=== PATIENT | female | born 1950 | race Two or more races ===

== ENCOUNTER 2021-12-24 13:19 | Inpatient (IN) | payer MEDICARE, OTHER ==
[~2021-12-24] VITALS: Ht 157.5 cm; Wt 45.8 kg
--- NOTE | 2021-12-24 13:37 | NUR ---
[facility] [place] "Failure to thrive,weight loss x2wks". On room air, breathing evenly and unlabored. Kept comfortable, will continue to monitor accordingly.
--- NOTE | 2021-12-24 13:47 | NUR ---
DISTRIBUTOR OF DIRECTORIES AT BEDSIDE FOR XRAY
[2021-12-24] MEDS ORDERED: INSU100V3 IJ (13:48)
[2021-12-24] MEDS ORDERED: METF-442 PO (13:48)
[2021-12-24] MEDS ORDERED: MAGN400O6 PO (13:48)
[2021-12-24] MEDS ORDERED: MAG30ORA PO (13:48)
[2021-12-24] MEDS ORDERED: INSU100I26 SQ (13:48)
[2021-12-24] MEDS ORDERED: RIVA1.5C13 PO (13:48)
[2021-12-24] MEDS ORDERED: GLIP5TAB13 PO (13:48)
[2021-12-24] MEDS ORDERED: MIRT-121 PO (13:48)
[2021-12-24] MEDS ORDERED: DIVA-78 PO (13:48)
--- NOTE | 2021-12-24 13:49 | NUR ---
LEFT FOREARM # 18 G SL ESTABLISHED, BLOOD SAMPLES OBTAINED AND SENT TO LAB. COVID SWAB OBTAINED AND SENT TO LAB.
[2021-12-24 13:51] LABS: BASOPHILS % (AUTO) 0.3 % (0.0-2.0); EOSINOPHILS % (AUTO) 1.4 % (0.0-6.0); HEMATOCRIT 43 % (33-45); HEMOGLOBIN 14.2 g/dL (11.5-14.8); LYMPHOCYTES % (AUTO) 25.1 % (20.0-44.0); MEAN CORPUSCULAR HGB CONC 33 g/dl (31.0-36.0); MEAN CORPUSCULAR VOLUME 93 fL (82-100); MONOCYTES # (AUTO) 0.6 K/uL (0.1-1.30); NEUTROPHILS # (AUTO) 5.2 K/uL (1.8-8.9); NEUTROPHILS % (AUTO) 65.2 % (43.0-81.0); PLATELET COUNT (AUTO) 212 K/uL (150-450); RED BLOOD CELL COUNT(AUTO) 4.58 MIL/uL (4.0-5.2)
--- NOTE | 2021-12-24 13:57 | NUR ---
MOVE SHEET SUBMITTED.
[2021-12-24 14:06] LABS: CALCIUM, SERUM 9.3 mg/dL (8.5-10.1); CREATININE 0.8 mg/dL (0.6-1.3); POTASSIUM 4.2 mmol/L (3.5-5.1)
--- NOTE | 2021-12-24 14:20 | NUR ---
URINE SAMPLE OBTAINED AND SENT TO LAB
[2021-12-24] MEDS ORDERED: MAG HYDROX/AL HYDROX/SIMETH 30 ML UDC PO PRN (14:30)
[2021-12-24] MEDS ORDERED: Z GUARD REMEDY 4 OZ OINT TP PRN (14:30)
[2021-12-24] MEDS ORDERED: ACETAMINOPHEN 325 MG TABLET PO PRN (14:30)
[2021-12-24] MEDS ORDERED: ONDANSETRON HCL/PF 4 MG/2 ML VIAL IVP PRN (14:30)
[2021-12-24] MEDS ORDERED: MAGNESIUM HYDROXIDE 30 ML UDC PO PRN ×2 (14:30)
[2021-12-24] MEDS ORDERED: DEXTROSE 50%-WATER 50 ML DISP.SYRIN IV PRN (14:30)
--- NOTE | 2021-12-24 15:00 | NUR ---
ADMISSION NOTE Received patient via gurney from ER. Report given by Remberto at 1445. Patient is A/O x 1-2, verbally responsive and confused at times. On room air, breathing evenly and unlabored. No SOB or s/s of distress noted. Patient oriented to room and how to use the call light. IV access on RAC #18, not flushing well. IV access long-term dislodged; removed and will re-insert. Skin assessment done. Tiny scab noted on sacral area. Photo taken and placed in chart. Wound care consult requested. VS as follows: BP 104/70; HR 68; RR 20; Temp 98.6; SPO2 100%. All belongings accounted for. Belonging sheet placed in chart. Safety precautions in place: bed in low, locked position; siderails up x 2; call light within reach. Will continue to monitor.
[2021-12-24 15:56] LABS: BILIRUBIN,URINE NEGATIVE (NEGATIVE); COLOR,URINE YELLOW (YELLOW); LEUKOCYTE ESTERASE ,URINE TRACE (NEGATIVE); NITRITE, URINE NEGATIVE (NEGATIVE); PROTEIN,URINE NEGATIVE (NEGATIVE); UGLUCOSE NEGATIVE (NEGATIVE); UROBILINOGEN,URINE 0.2 EU/dL (0.2)
[2021-12-24 16:00] VITALS: BP 104/70
[2021-12-24] MEDS: IV NS 0.9% 1,000 ML IV PRN (16:01)
[2021-12-24 16:05] LABS: BACTERIA,URINE None seen /HPF (None Seen); RBC,URINE 0-2 /HPF (0-2); SQUAMOUS EPITHELIAL CELL,UR Few /HPF (None Seen); WBC,URINE 0-2 /HPF (0-3)
[2021-12-24] MEDS: METFORMIN 500 MG TABLET PO SCH (16:56)
[2021-12-24] MEDS: DIVALPROEX SODIUM 250 MG TABLET.DR PO SCH (16:56)
[2021-12-24] MEDS: BLOOD SUGAR DIAGNOSTIC 1 EACH STRIP VI SCH ×2 (17:24→22:33)
[2021-12-24] MEDS: INSULIN REGULAR, HUMAN 100 UNIT/ML 3 ML VIAL SQ PRN ×2 (17:24→22:29)
--- NOTE | 2021-12-24 19:31 | NUR ---
MS RN CLOSING NOTE Patient in bed, resting. A/O x 1-2, confused and forgetful at times. Stable on room air, breathing evenly and unlabored. No SOB or s/s of distress noted. IV access re-inserted on RFA #22 now infusing NS at 75 ml/hr. Denies any pain or discomfort at this time. All needs attended to. Due meds given. Safety precautions maintained: bed in low, locked position; siderails up x 2; call light within reach. Will endorse to shift foreman nurse for ARIES. Addendum: 12/24/21 at 1936 by GALINA WING RN CORRECTION: IV access on RFA #24
--- NOTE | 2021-12-24 19:54 | NUR ---
RECEIVED PATIENT IN BED, ALERT/ORIENTED X2, WITH CONFUSION, FORGETFUL, QUIET, CALM, FALL RISK, GETTING OUT OF BED UNASSISTED, FALL PRECAUTION, BED ALARM ON, KEPT SAFE, WILL CONTINUE TO MONITOR.
[2021-12-24 20:00] VITALS: BP 136/65
[2021-12-24] MEDS: RIVASTIGMINE TARTRATE 1.5 MG CAPSULE PO SCH (20:34)
[2021-12-24] MEDS: MIRTAZAPINE 15 MG TABLET PO SCH (21:32)
--- NOTE | 2021-12-24 21:33 | NUR ---
BG 77 MG/DL, GIVEN 8 OZ ORANGE JUICE, WILL PROVIDE SANDWICH, AND RE-CHECK BLOOD SUGAR
[2021-12-24 21:51] VITALS: BP 136/65
[2021-12-24] MEDS: INSULIN GLARGINE, 100 UNIT/ML CARTRIDGE SQ SCH (22:00)
--- NOTE | 2021-12-24 22:30 | NUR ---
NO APPETITE, GIVEN SANDWICH, ONLY 1/4 EATEN, DRANK 8OZ ORANGE JUICE, OFFERED MORE SNACKS, REFUSED, RECHECKED BLOOD SUGAR, BG 80 MG/DL. EDUCATED PATIENT TO EAT MORE TO INCREASE BLOOD SUGAR. LANTUS 10 UNITS NOT GIVEN, INSULIN ALSO HELD.
--- NOTE | 2021-12-25 06:09 | NUR ---
ALERT/ORIENTED X2-3, ROOM AIR, NO COMPLAIN OF PAIN, LETHARGIC, ANSWERS SIMPLE QUESTIONS, ABLE TO SWALLOW MEDICATION, REGULAR DIET, NO APPETITE, INCONTINENT, ACCUCHECK WITH SLIDING SCALE, CONTINUE IVF, ENCOURAGE EATING MORE, SUPPORTIVE CARE, FALL PRECAUTION.
[2021-12-25] MEDS: IV NS 0.9% 1,000 ML IV PRN (06:25)
[2021-12-25] MEDS: BLOOD SUGAR DIAGNOSTIC 1 EACH STRIP VI SCH ×4 (06:54→22:22)
[2021-12-25] MEDS: *INSULIN REGULAR(HUMULIN R)HUM 100 UNIT/ML VIAL SQ PRN (06:54)
--- NOTE | 2021-12-25 07:00 | NUR ---
MS PHAM OPENING NOTE PATIENT LAYING IN BED, A/O X 1, TOLERATING WELL ON ROOM AIR WITH NO S/S RESPIRATORY DISTRESS. NO COMPLAINTS OF PAIN OR DISCOMFORT AT THIS TIME. RFA # 24 SL CLEAN, INTACT, AND INFUSING NS @ 75 ML/HR. SAFETY MEASURES IN PLACE: BED IN LOWEST LOCKED POSITION, SIDE RAILS UP X 2, CALL LIGHT WITHIN REACH WILL CONTINUE TO MONITOR. Addendum: 12/25/21 at 1034 by CHING MORGAN RN CORRECTION: PATIENT A/O X 2 (TO NAME AND LOCATION)
[2021-12-25 08:00] VITALS: BP 165/75
[2021-12-25] MEDS: METFORMIN 500 MG TABLET PO SCH ×2 (08:15→17:07)
[2021-12-25] MEDS: RIVASTIGMINE TARTRATE 1.5 MG CAPSULE PO SCH ×2 (08:16→22:04)
[2021-12-25] MEDS: DIVALPROEX SODIUM 250 MG TABLET.DR PO SCH ×3 (08:16→17:07)
[2021-12-25 11:45] LABS: CALCIUM, SERUM 8.2 mg/dL (8.5-10.1); CREATININE 0.7 mg/dL (0.6-1.3); MAGNESIUM 2.1 mg/dL (1.8-2.4); PHOSPHORUS 3.8 mg/dL (2.5-4.9); POTASSIUM 4.4 mmol/L (3.5-5.1)
[2021-12-25] MEDS: CEFTRIAXONE 1 G in IV D5W 50 ML IV SCH (12:40)
[2021-12-25] MEDS: INSULIN REGULAR, HUMAN 100 UNIT/ML 3 ML VIAL SQ PRN (13:23)
[2021-12-25 15:24] LABS: BASOPHILS % (AUTO) 0.3 % (0.0-2.0); EOSINOPHILS % (AUTO) 1.4 % (0.0-6.0); HEMATOCRIT 42 % (33-45); HEMOGLOBIN 14.2 g/dL (11.5-14.8); LYMPHOCYTES # (AUTO) 2.5 K/uL (0.8-4.8); LYMPHOCYTES % (AUTO) 30.1 % (20.0-44.0); MEAN CORPUSCULAR HGB CONC 34 g/dl (31.0-36.0); MEAN CORPUSCULAR VOLUME 94 fL (82-100); MONOCYTES # (AUTO) 0.6 K/uL (0.1-1.30); MONOCYTES % (AUTO) 7.3 % (2.0-12.0); NEUTROPHILS # (AUTO) 5.1 K/uL (1.8-8.9); NEUTROPHILS % (AUTO) 60.9 % (43.0-81.0); PLATELET COUNT (AUTO) 204 K/uL (150-450); RED BLOOD CELL COUNT(AUTO) 4.49 MIL/uL (4.0-5.2); WHITE BLOOD COUNT (AUTO) 8.3 K/uL (4.3-11.0)
[2021-12-25 16:00] VITALS: BP 152/104
--- NOTE | 2021-12-25 19:00 | NUR ---
MS RN CLOSING NOTES PATIENT LAYING IN BED, A/O X 1, TOLERATING WELL ON ROOM AIR WITH NO S/S RESPIRATORY DISTRESS. NO COMPLAINTS OF PAIN OR DISCOMFORT AT THIS TIME. RFA # 24 SL CLEAN, INTACT, AND INFUSING NS @ 75 ML/HR. SAFETY MEASURES IN PLACE: BED IN LOWEST LOCKED POSITION, SIDE RAILS UP X 2, CALL LIGHT WITHIN REACH. ALL NEEDS MET. WILL ENDORSE TO LEARNING AND DEVELOPMENT ANALYST FOR ARIES.
--- NOTE | 2021-12-25 19:15 | NUR ---
MS RN OPENING NOTE RECEIVED PATIENT RESTING IN BED; AWAKE, ALERT AND ORIENTED X1. RESPIRATION EVEN AND NONLABORED. ON ROOM AIR; TOLERATING WELL. NO S/SX OF RESPIRATORY DISTRESS NOTED. DENIES ANY PAIN OR DISCOMFORT OF THIS TIME. WITH IV ACCESS ON RIGHT FOREARM 24G; PATENT AND INTACT INFUSING WITH NS 1L REGULATED @ 75 ML/HR; FLUSHES WELL. NEEDS ANTICIPATED AND ATTENDED. SAFETY MEASURES IMPLEMENTED: HEAD OF BED ELEVATED, CALL LIGHT AND TABLE WITHIN REACH, SIDE RAILS UP X2, BED IN LOWEST LOCKED POSITION. WILL CONTINUE TO MONITOR
[2021-12-25 20:00] VITALS: BP 123/64
[2021-12-25] MEDS: INSULIN GLARGINE, 100 UNIT/ML CARTRIDGE SQ SCH (22:00)
[2021-12-25] MEDS: MIRTAZAPINE 15 MG TABLET PO SCH (22:04)
--- NOTE | 2021-12-25 22:22 | NUR ---
RN NOTE BLOOD SUGAR CHECKED - 97 MG/DL; NO INSULIN COVERAGE GIVEN. OFFERED APPLE JUICE AND HONEY CRACKERS. LANTUS 10 UNITS HELD.
--- NOTE | 2021-12-26 06:06 | NUR ---
RN NOTE BLOOD SUGAR CHECKED - 125 MG/DL; NO INSULIN COVERAGE GIVEN.
[2021-12-26] MEDS: BLOOD SUGAR DIAGNOSTIC 1 EACH STRIP VI SCH ×4 (06:13→21:39)
--- NOTE | 2021-12-26 07:00 | NUR ---
MS RN OPENING NOTE PATIENT LAYING IN BED, A/O X 1, TOLERATING WELL ON ROOM AIR WITH NO S/S RESPIRATORY DISTRESS. NO COMPLAINTS OF PAIN OR DISCOMFORT AT THIS TIME. R FA # 24 G IV CLEAN, INTACT, AND INFUSING NS @ 75 ML/HR. SAFETY MEASURES IN PLACE: BED IN LOWEST LOCKED POSITION, SIDE RAILS UP X 2, CALL LIGHT WITHIN REACH. WILL CONTINUE TO MONITOR.
--- NOTE | 2021-12-26 07:05 | NUR ---
MS RN CLOSING NOTE PT REMAINS IN BED; AWAKE, A/OX1. ON ROOM AIR, WELL TOLERATED. NO S/SX OF RESPIRATORY DISTRESS. NO C/O DISCOMFORT OR PAIN AT THIS TIME. IV SITE RFA 24G; PATENT, INTACT INFUSING WITH NS REGULATED @ 75 ML/HR; FLUSHES WELL. SAFETY MEASURES MAINTAINED: BED IN LOWEST LOCKED POSITION, CALL LIGHT WITHIN REACH, SIDE RAILS UP X2. ENDORSED TO MORNING SHIFT FOR ARIES.
[2021-12-26 08:27] VITALS: BP 116/88
[2021-12-26] MEDS: RIVASTIGMINE TARTRATE 1.5 MG CAPSULE PO SCH ×2 (08:37→21:42)
[2021-12-26] MEDS: METFORMIN 500 MG TABLET PO SCH ×2 (08:37→16:30)
[2021-12-26] MEDS: DIVALPROEX SODIUM 250 MG TABLET.DR PO SCH ×3 (08:37→16:30)
[2021-12-26] MEDS: IV NS 0.9% 1,000 ML IV PRN (08:38)
[2021-12-26] MEDS: CEFTRIAXONE 1 G in IV D5W 50 ML IV SCH (10:29)
[2021-12-26 16:28] VITALS: BP 142/71
--- NOTE | 2021-12-26 19:00 | NUR ---
MS RN CLOSING NOTE PATIENT LAYING IN BED, A/O X 1, TOLERATING WELL ON ROOM AIR WITH NO S/S RESPIRATORY DISTRESS. NO COMPLAINTS OF PAIN OR DISCOMFORT. R FA # 24 G SL CLEAN, INTACT, AND FLUSHING WELL. SAFETY MEASURES IN PLACE: BED IN LOWEST LOCKED POSITION, SIDE RAILS UP X 2, CALL LIGHT WITHIN REACH. ALL NEEDS MET. WILL ENDORSE TO PACKING AND STAMPING MACHINE OPERATOR FOR ARIES.
--- NOTE | 2021-12-26 19:30 | NUR ---
RN OPENING NOTES RECEIVED PT IN BED, ASLEEP, AWAKENS TO VERBAL STIMULI. AOx2. ON RA AND TOLERATING WELL. NO SOB NOTED. NO S/SX OF RESPIRATORY DISTRESS NOTED. IV ACCESS IN RFA #24G. IV IS INTACT, PATENT, AND FLUSHING WELL. SAFETY PRECAUTIONS IN PLACE: BED IN LOWEST, LOCKED POSITION, SIDERAILS UPx2, AND BRAKES ON. TABLE AND CALL LIGHT WITHIN REACH. WILL CONTINUE TO MONITOR.
[2021-12-26 20:00] VITALS: BP 128/74
[2021-12-26] MEDS: INSULIN GLARGINE, 100 UNIT/ML CARTRIDGE SQ SCH (21:39)
[2021-12-26] MEDS: *INSULIN REGULAR(HUMULIN R)HUM 100 UNIT/ML VIAL SQ PRN (21:40)
[2021-12-26] MEDS: MIRTAZAPINE 15 MG TABLET PO SCH (21:42)
--- NOTE | 2021-12-27 06:39 | NUR ---
RN CLOSING NOTES PT IN BED, ASLEEP, AWAKENS TO VERBAL STIMULI. AOx2. ON RA AND TOLERATING WELL. NO SOB NOTED. NO S/SX OF RESPIRATORY DISTRESS NOTED. IV ACCESS IN RFA #24G. IV IS INTACT, PATENT, AND FLUSHING WELL. ALL ORDERS CARRIED OUT. ALL NEEDS MET. PT KEPT CLEAN AND DRY. SAFETY PRECAUTIONS IN PLACE: BED IN LOWEST, LOCKED POSITION, SIDERAILS UPx2, AND BRAKES ON. TABLE AND CALL LIGHT WITHIN REACH. WILL ENDORSE TO ONCOMING SHIFT FOR ARIES.
--- NOTE | 2021-12-27 07:08 | NUR ---
RN OPEN NOTE RECEIVED PATIENT IN BED SLEEPING , AWAKENS TO VERBAL STIMULI. AOx2. OCCASIONALLY CONFUSED ON RA AND TOLERATING WELL. NO SOB NOTED. NO S/SX OF RESPIRATORY DISTRESS NOTED.PATIENT IS NPO PATIENT HAS IV ACCESS IN RFA #24G HAS D5 1/2 NS RUNNING AT 75ML/HR IV IS INTACT, AND FLUSHING WELL. SAFETY PRECAUTIONS IN PLACE: BED IN LOWEST, LOCKED POSITION, SIDE RAILS UPx2, AND BRAKES ON. TABLE AND CALL LIGHT WITHIN REACH. WILL CONTINUE WITH ARIES Addendum: 12/27/21 at 0717 by NANCIE FLORES RN NO FLUID RUNNING AT THIS TIME
[2021-12-27] MEDS: BLOOD SUGAR DIAGNOSTIC 1 EACH STRIP VI SCH ×2 (08:12→12:00)
[2021-12-27 08:37] VITALS: BP 118/65
--- NOTE | 2021-12-27 08:46 | NUR ---
WOUND CARE CONSULT: PT PRESENTS WITH HEALED AREA/SCAR TO SACRAL AREA. PT MOVES ABOUT IN BED. RECOMMENDATIONS MADE FOR SKIN PROTECTION. DISCUSSED WITH NURSING STAFF. PT IS ON PANDA ISOFLEX LOW AIRLOSS BED. M D IN AGREEMENT WITH PLAN OF CARE.
[2021-12-27] MEDS: RIVASTIGMINE TARTRATE 1.5 MG CAPSULE PO SCH (09:56)
[2021-12-27] MEDS: DIVALPROEX SODIUM 250 MG TABLET.DR PO SCH ×2 (09:56→13:31)
[2021-12-27] MEDS: METFORMIN 500 MG TABLET PO SCH (09:56)
[2021-12-27] MEDS: CEFTRIAXONE 1 G in IV D5W 50 ML IV SCH (11:48)
--- NOTE | 2021-12-27 14:45 | NUR ---
rn note patient is at stable condition , report was given to EMT , discharge instructions were provided to the patient and EMT . Patient is discharged from [facility]
== END 2021-12-27 14:40 | DRG 640 ==
LOC: ER 13:24 → MED 14:40
PROVIDERS: ADMIT Internal Medicine; ATTEND Internal Medicine
DX: E86.0 Dehydration (principal); G93.41 Metabolic encephalopathy; N39.0 Urinary tract infection, site not specified; D68.69 Other thrombophilia; E11.9 Type 2 diabetes mellitus without complications; I25.10 Atherosclerotic heart disease of native coronary artery without angina pectoris; R62.7 Adult failure to thrive; G30.9 Alzheimer's disease, unspecified; F02.80 Dementia in other diseases classified elsewhere, unspecified severity, without behavioral disturbance, psychotic disturbance, mood disturbance, and anxiety; J45.909 Unspecified asthma, uncomplicated; Z87.11 Personal history of peptic ulcer disease; R32 Unspecified urinary incontinence; R27.8 Other lack of coordination; F41.9 Anxiety disorder, unspecified; F39 Unspecified mood [affective] disorder; Z79.4 Long term (current) use of insulin; Z79.84 Long term (current) use of oral hypoglycemic drugs; Z79.899 Other long term (current) drug therapy; Z91.81 History of falling; I10 Essential (primary) hypertension; K21.9 Gastro-esophageal reflux disease without esophagitis; F29 Unspecified psychosis not due to a substance or known physiological condition
CPT/HCPCS: 36415; 71045-TC; 80048-TC; 80164-TC; 81001; 82962-TC; 83735-TC; 84100-TC; 85025-TC; 97112-TC; 97116-TC; 97530-TC; C9803; G0378; J0696; J1815; J7030; J7060

== ENCOUNTER 2022-04-14 22:28 | Inpatient (IN) | payer MEDICARE, OTHER ==
[~2022-04-14] VITALS: Ht 157.5 cm; Wt 44.0 kg
[~2022-04-14 22:28] MED LIST: DIVA-78 PO; GLIP5TAB13 PO; INSU100I26 SQ; INSU100V3 SQ; MAG30ORA PO; MAGN400O6 PO; METF-442 PO; MIRT-121 PO; RIVA1.5C13 PO
--- NOTE | 2022-04-14 22:45 | NUR ---
michael from [facility], sent by PMD for gen weakness, COVID+ today asymptomatic otherwise. PT A/OX1; CONFUSED. TOLERATING R/A WELL WITH NO RESP DISTRESS. CONNECTED PT TO POX AND MONITOR. SAFETY MEASURES IN PLACE.
--- NOTE | 2022-04-14 23:00 | NUR ---
PAYROLL BOOKKEEPER AT PT'S BEDSIDE
--- NOTE | 2022-04-14 23:05 | NUR ---
DATA PROCESSING OPERATOR AT PT'S BEDSIDE
--- NOTE | 2022-04-14 23:08 | NUR ---
COVID ANTIGEN SWAB COLLECTED AND SENT TO LAB
[2022-04-14 23:21] LABS: BASOPHILS % (AUTO) 0.2 % (0.0-2.0); EOSINOPHILS % (AUTO) 0.1 % (0.0-6.0); HEMATOCRIT 40 % (33-45); HEMOGLOBIN 13.7 g/dL (11.5-14.8); LYMPHOCYTES # (AUTO) 2.1 K/uL (0.8-4.8); LYMPHOCYTES % (AUTO) 20.7 % (20.0-44.0); MEAN CORPUSCULAR HGB CONC 34 g/dl (31.0-36.0); MEAN CORPUSCULAR VOLUME 91 fL (82-100); MONOCYTES # (AUTO) 1.3 K/uL (0.1-1.30); MONOCYTES % (AUTO) 12.9 % (2.0-12.0); NEUTROPHILS # (AUTO) 6.6 K/uL (1.8-8.9); NEUTROPHILS % (AUTO) 66.1 % (43.0-81.0); PLATELET COUNT (AUTO) 183 K/uL (150-450); RED BLOOD CELL COUNT(AUTO) 4.46 MIL/uL (4.0-5.2)
[2022-04-14 23:40] LABS: CARBON DIOXIDE 25 mmol/L (21-32); CHLORIDE 96 mmol/L (98-107); CREATININE 0.8 mg/dL (0.6-1.3); GLUCOSE 128 mg/dL (74-106); POTASSIUM 4.2 mmol/L (3.5-5.1); SODIUM SERUM 130 mmol/L (136-145); UREA NITROGEN, BLOOD 12 mg/dL (7-18)
--- NOTE | 2022-04-14 23:42 | NUR ---
URINE COLLECTED AND SENT TO LAB
--- NOTE | 2022-04-14 23:43 | NUR ---
IV ESTABLISHED R WRIST #18G S/L; PATENT AND INTACT
[2022-04-14 23:52] LABS: ALBUMIN 3.2 g/dL (3.4-5.0); ALKALINE PHOSPHATASE 55 U/L (46-116); BILIRUBIN,TOTAL 0.5 mg/dL (0.2-1.0); TOTAL PROTEIN, SERUM 7.8 g/dL (6.4-8.2)
[2022-04-15 00:09] LABS: BILIRUBIN,URINE NEGATIVE (NEGATIVE); COLOR,URINE DARK YELLOW (YELLOW); LEUKOCYTE ESTERASE ,URINE 3+ (NEGATIVE); NITRITE, URINE POSITIVE (NEGATIVE); PROTEIN,URINE 2+ mg/dl (NEGATIVE); UGLUCOSE NEGATIVE (NEGATIVE); UROBILINOGEN,URINE 0.2 EU/dL (0.2)
[2022-04-15 00:19] LABS: ALANINE AMINOTRANSFERASE 7 U/L (12-78); ASPARTATE AMINOTRANSFERASE 13 U/L (15-37); BILIRUBIN,DIRECT 0.1 mg/dL (0.0-0.2)
[2022-04-15 00:20] LABS: BACTERIA,URINE Few /HPF (None Seen); RBC,URINE 0-2 /HPF (0-2); SQUAMOUS EPITHELIAL CELL,UR Rare /HPF (None Seen); WBC,URINE TOO NUMEROUS TO COUN /HPF (0-3)
[2022-04-15] MEDS ORDERED: CEFTRIAXONE 1GM BAG (ER ONLY) 1 GM/50 ML PIGGYBACK IV ONE (00:30)
[2022-04-15] MEDS ORDERED: CEFTRIAXONE 1GM BAG (ER ONLY) 50 ML IV ONE (00:31)
--- NOTE | 2022-04-15 01:10 | NUR ---
CALLED [facility] TO PAGE FOR PANEL; AWAITING CALL FROM DEIRDRE CRISOSTOMO
[2022-04-15] MEDS ORDERED: ONDANSETRON HCL/PF 4 MG/2 ML VIAL IVP PRN (02:30)
[2022-04-15] MEDS ORDERED: DEXTROSE 50%-WATER 50 ML DISP.SYRIN IV PRN (02:30)
[2022-04-15] MEDS ORDERED: ACETAMINOPHEN 325 MG TABLET PO PRN (02:30)
[2022-04-15] MEDS ORDERED: ZOLPIDEM TARTRATE 5 MG TABLET PO PRN (02:30)
[2022-04-15] MEDS ORDERED: Z GUARD REMEDY 4 OZ OINT TP PRN (02:30)
[2022-04-15] MEDS ORDERED: MAG HYDROX/AL HYDROX/SIMETH 30 ML UDC PO PRN (02:30)
[2022-04-15] MEDS ORDERED: MAGNESIUM HYDROXIDE 30 ML UDC PO PRN (02:30)
--- NOTE | 2022-04-15 03:42 | NUR ---
COVID PCR SWAB COLLECTED AND SENT TO LAB
[2022-04-15 05:05] LABS: BASOPHILS % (AUTO) 0.2 % (0.0-2.0); EOSINOPHILS % (AUTO) 0.2 % (0.0-6.0); HEMATOCRIT 40 % (33-45); HEMOGLOBIN 13.5 g/dL (11.5-14.8); LYMPHOCYTES # (AUTO) 2.1 K/uL (0.8-4.8); LYMPHOCYTES % (AUTO) 23.8 % (20.0-44.0); MEAN CORPUSCULAR HGB CONC 34 g/dl (31.0-36.0); MEAN CORPUSCULAR VOLUME 91 fL (82-100); MONOCYTES # (AUTO) 1.3 K/uL (0.1-1.30); MONOCYTES % (AUTO) 15.1 % (2.0-12.0); NEUTROPHILS # (AUTO) 5.2 K/uL (1.8-8.9); NEUTROPHILS % (AUTO) 60.7 % (43.0-81.0); PLATELET COUNT (AUTO) 169 K/uL (150-450); WHITE BLOOD COUNT (AUTO) 8.6 K/uL (4.3-11.0)
[2022-04-15] MEDS ORDERED: ENOXAPARIN SODIUM 40 MG/0.4 ML DISP.SYRIN SQ ONE (05:06)
[2022-04-15] MEDS: ENOXAPARIN SODIUM 40 MG/0.4 ML DISP.SYRIN SQ SCH ×2 (05:13→21:46)
[2022-04-15 05:25] LABS: CALCIUM, SERUM 8.5 mg/dL (8.5-10.1); CREATININE 0.6 mg/dL (0.6-1.3); MAGNESIUM 1.9 mg/dL (1.8-2.4); PHOSPHORUS 4.6 mg/dL (2.5-4.9); POTASSIUM 4.8 mmol/L (3.5-5.1)
[2022-04-15 05:36] LABS: THYROID STIMULATING HORMONE 4.603 uIU/mL (0.358-3.74)
--- NOTE | 2022-04-15 06:39 | NUR ---
DR. GLO ARCHULETA AT PT'S BEDSIDE FOR EVAL.
--- NOTE | 2022-04-15 07:15 | NUR ---
RECEIVED PT FROM RIC BOTELLO PT ASLEEPY NO SOB OR DISTRESS
--- NOTE | 2022-04-15 07:24 | NUR ---
VSS. ENDORSED ARIES TO [facility] PHAM.
[2022-04-15] MEDS: BLOOD SUGAR DIAGNOSTIC 1 EACH STRIP IN SCH ×4 (07:28→21:49)
--- NOTE | 2022-04-15 08:30 | NUR ---
RN NOTE REPORT GIVEN BY DEVON CHILDS RN, PATIENT IS FROM [facility] CHIEF COMPLAINT: WEAKENESS. DIAGNOSED WTIH UTI. PATIENT ARRIVED ON UNIT VIA BED ACCOMPANIED BY ANKIT ARELLANO. VS: BP: 101/64, HR: 83, O2 SAT 97% ON ROOM AIR, AXILARY TEMP OF 98.3F. PATIENT AOX2 NAME AND . IV ACCESS ON RW #22G SL, FLUSHED AND PATENT, NO S/S OF BLEEDING. SKIN INTACT. NO PAIN NOTED AT THIS TIME. ALL SAFETY MEASURE IN PLACE, BED LOCKED IN LOWEST POSITION, CALL LIGHT WITHIN REACH. WILL CONTINUE TO MONITOR THROUGHOUT SHIFT.
[2022-04-15] MEDS: PANTOPRAZOLE 40 MG VIAL IV SCH (10:39)
[2022-04-15] MEDS: INSULIN REGULAR, HUMAN 100 UNIT/ML 3 ML VIAL SQ PRN ×2 (16:53→21:50)
--- NOTE | 2022-04-15 16:55 | NUR ---
RN NOTE ACCUCHECK PERFORMED AT 1430 FOR 1200, NON ADMINISTERED FOR 1730
--- NOTE | 2022-04-15 19:20 | NUR ---
RN NOTES RECEIVED PT FOR CONTINUITY OF CARE. PATIENT A/OX41 IN NO S/SX OF ACUTE DISTRESS AT THIS TIME; CURRENTLY ON ROOM AIR ; WITH 02 SAT 94% AT THIS TIME. WITH IV ACCESS ON R WRIST# 18 PATENT, INTACT AND FLUSHING WELL. WILL ENSURE SAFETY MEASURES WITHIN THE SHIFT. PATIENT BED ALARM IS ON. HEAD OF BED ELEVATED. BED IS LOCKED, IN LOWEST POSITION AND SIDE RAILS UP. CALL LIGHT WITHIN REACH OF THE PATIENT. APPLICABLE ISOLATION PRECAUTIONS IN PLACE. WILL CONTINUE TO MONITOR AND REASSESS FOR ANY CHANGES AND WILL CARRY OUT ANY ONGOING AND ACTIVE MD ORDER.
[2022-04-15 20:00] VITALS: BP 124/76
[2022-04-16] MEDS: CEFTRIAXONE 1 G in IV D5W 50 ML IV SCH (00:45)
[2022-04-16 04:00] VITALS: BP 124/61
--- NOTE | 2022-04-16 04:00 | NUR ---
RN NOTES PATIENT REMAINED TO BE IN NO SIGNS OF ACUTE RESPIRATORY DISTRESS , VITAL SIGNS STABLE AT THIS TIME. REGULAR TURNING AND REPOSITIONING DONE, AM PATIENT CARE RENDERED WILL CONTINUE TO MONITOR AND REASSESS FOR ANY CHANGES THROUGHOUT THE SHIFT.
--- NOTE | 2022-04-16 06:34 | NUR ---
RN CLOSING NOTE: PATIENT REMAINS IN ROOM IN NO SIGNS OF RESPIRATORY DISTRESS, A/OX1 AND CONFUSED. PATIENT STILL ON ROOM AIR ;TOLERATING WELL SATURATING @ >92% SP02. SAFETY MEASURES IMPLEMENTED, BED IN LOWEST POSITION, LOCKED, SIDE RAILS UP, CALL LIGHT WITHIN REACH. ALL NEEDS AND ORDERS ADDRESSED DURING THE SHIFT. IV ACCESS MAINTAINED INTACT, SECURED AND FLUSHING WELL. ALL DUE MEDS GIVEN ORDERED & SCHEDULED ; PATIENT TOLERATED WELL. PATIENT KEPT CLEAN AND COMFORTABLE WITHIN THE SHIFT. PATIENT ENDORSED TO INCOMING SHIFT RN WITH STABLE VITAL SIGN AND FOR CONTINUITY OF CARE.
--- NOTE | 2022-04-16 07:05 | NUR ---
RN OPENING NOTE RECEIVED PATIENT REPORT FROM NIGHT RN ROB. PATIENT ASLEEP IN BED BREATHING EVENLY AND UNLABORED ON ROOM AIR. AROUASABLE TO NAME. SKIN INTACT. IV ACCESS ON RIGHT WRIST 18 GAUGE TKO FLUIDS ATTACHED FOR ANTIBIOTIC THERAPY. SAFETY MEASURES IMPLEMENTED. WILL CONTINUE PLAN OF CARE AND ANTICIPATE NEEDS.
[2022-04-16 07:06] LABS: BASOPHILS % (AUTO) 0.6 % (0.0-2.0); EOSINOPHILS % (AUTO) 1.1 % (0.0-6.0); HEMATOCRIT 42 % (33-45); HEMOGLOBIN 13.5 g/dL (11.5-14.8); LYMPHOCYTES # (AUTO) 2.2 K/uL (0.8-4.8); LYMPHOCYTES % (AUTO) 28.7 % (20.0-44.0); MEAN CORPUSCULAR HGB CONC 33 g/dl (31.0-36.0); MEAN CORPUSCULAR VOLUME 91 fL (82-100); MONOCYTES # (AUTO) 1.2 K/uL (0.1-1.30); MONOCYTES % (AUTO) 15.3 % (2.0-12.0); NEUTROPHILS # (AUTO) 4.1 K/uL (1.8-8.9); NEUTROPHILS % (AUTO) 54.3 % (43.0-81.0); PLATELET COUNT (AUTO) 177 K/uL (150-450); RED BLOOD CELL COUNT(AUTO) 4.54 MIL/uL (4.0-5.2); WHITE BLOOD COUNT (AUTO) 7.5 K/uL (4.3-11.0)
[2022-04-16 07:25] LABS: CALCIUM, SERUM 8.6 mg/dL (8.5-10.1); CREATININE 0.6 mg/dL (0.6-1.3); PHOSPHORUS 4.1 mg/dL (2.5-4.9); POTASSIUM 4.3 mmol/L (3.5-5.1)
[2022-04-16] MEDS: BLOOD SUGAR DIAGNOSTIC 1 EACH STRIP IN SCH ×4 (07:30→21:30)
[2022-04-16] MEDS: PANTOPRAZOLE 40 MG VIAL IV SCH (09:01)
[2022-04-16 12:00] VITALS: BP_SYST 115; BP_SYST 124; BP_DIAS 58; BP_DIAS 61
[2022-04-16] MEDS: INSULIN REGULAR, HUMAN 100 UNIT/ML 3 ML VIAL SQ PRN ×2 (12:21→21:32)
[2022-04-16] MEDS: GLUCERNA SHAKE 237 ML CAN PO SCH (18:08)
--- NOTE | 2022-04-16 18:40 | NUR ---
RN CLOSING NOTE PATIENT REMAINS IN ROOM. ALL DUE MEDICATIONS GIVEN. KEPT CLEAN AND DRY THROUGHOUT SHIFT. HAND OFF REPORT GIVEN TO NIGHTSHIFT RN FOR CONTINUATION OF CARE.
--- NOTE | 2022-04-16 19:05 | NUR ---
RN NOTES RECEIVED PT FOR CONTINUITY OF CARE. PATIENT A/OX1 IN NO S/SX OF ACUTE DISTRESS AT THIS TIME; CURRENTLY ON ROOM AIR ; WITH 02 SAT 96% AT THIS TIME. WITH IV ACCESS ON R WRIST# 18 PATENT, INTACT AND FLUSHING WELL. WILL ENSURE SAFETY MEASURES WITHIN THE SHIFT. PATIENT BED ALARM IS ON. HEAD OF BED ELEVATED. BED IS LOCKED, IN LOWEST POSITION AND SIDE RAILS UP. CALL LIGHT WITHIN REACH OF THE PATIENT. WILL CONTINUE TO MONITOR AND REASSESS FOR ANY CHANGES AND WILL CARRY OUT ANY ONGOING AND ACTIVE MD ORDER.
[2022-04-16 20:00] VITALS: BP 109/62
[2022-04-16] MEDS: ENOXAPARIN SODIUM 40 MG/0.4 ML DISP.SYRIN SQ SCH (21:27)
[2022-04-17] MEDS: CEFTRIAXONE 1 G in IV D5W 50 ML IV SCH (00:19)
[2022-04-17 04:00] VITALS: BP 116/61
--- NOTE | 2022-04-17 04:30 | NUR ---
RN NOTES ADDITIONAL IV SITE SECURED ON R FA #22, PATENT, INTACT AND FLUSHING WELL.
--- NOTE | 2022-04-17 06:37 | NUR ---
RN CLOSING NOTE: PATIENT REMAINS IN ROOM IN NO SIGNS OF RESPIRATORY DISTRESS, A/OX1 ANDCONFUSED. PATIENT STILL ON ROOM AIR ;TOLERATING WELL SATURATING @ >95% SP02. SAFETY MEASURES IMPLEMENTED, BED IN LOWEST POSITION, LOCKED, SIDE RAILS UP, CALL LIGHT WITHIN REACH. ALL NEEDS AND ORDERS ADDRESSED DURING THE SHIFT. IV ACCESS MAINTAINED INTACT, SECURED AND FLUSHING WELL. ALL DUE MEDS GIVEN ORDERED & SCHEDULED ; PATIENT TOLERATED WELL. PATIENT KEPT CLEAN AND COMFORTABLE WITHIN THE SHIFT. PATIENT ENDORSED TO INCOMING SHIFT RN WITH STABLE VITAL SIGN AND FOR CONTINUITY OF CARE.
[2022-04-17 06:47] LABS: CALCIUM, SERUM 8.5 mg/dL (8.5-10.1); CREATININE 0.6 mg/dL (0.6-1.3); MAGNESIUM 2.1 mg/dL (1.8-2.4); PHOSPHORUS 3.6 mg/dL (2.5-4.9); POTASSIUM 3.8 mmol/L (3.5-5.1)
[2022-04-17 06:50] LABS: BASOPHILS % (AUTO) 0.2 % (0.0-2.0); EOSINOPHILS % (AUTO) 0.8 % (0.0-6.0); HEMATOCRIT 41 % (33-45); HEMOGLOBIN 13.5 g/dL (11.5-14.8); LYMPHOCYTES # (AUTO) 2.2 K/uL (0.8-4.8); LYMPHOCYTES % (AUTO) 29.9 % (20.0-44.0); MEAN CORPUSCULAR HGB CONC 33 g/dl (31.0-36.0); MEAN CORPUSCULAR VOLUME 91 fL (82-100); MONOCYTES # (AUTO) 1.1 K/uL (0.1-1.30); MONOCYTES % (AUTO) 14.4 % (2.0-12.0); NEUTROPHILS % (AUTO) 54.7 % (43.0-81.0); PLATELET COUNT (AUTO) 195 K/uL (150-450); RED BLOOD CELL COUNT(AUTO) 4.52 MIL/uL (4.0-5.2); WHITE BLOOD COUNT (AUTO) 7.4 K/uL (4.3-11.0)
--- NOTE | 2022-04-17 07:28 | NUR ---
MS RN NOTE: PATIENT IN BED NO SIGNS OF RESPIRATORY DISTRESS, A/OX1 AND CONFUSED. PATIENT STILL ON ROOM AIR NO SOB NOTED AT THIS TIME, . SAFETY MEASURES IMPLEMENTED, BED IN LOWEST POSITION, LOCKED, SIDE RAILS UP, CALL LIGHT WITHIN REACH. A. IV ACCESS MAINTAINED INTACT, SECURED AND FLUSHING WELL. ON RT FA PATIENT KEPT CLEAN AND COMFORTABLE , WILL CONT TO MONITOR CLOSELY
[2022-04-17] MEDS: GLUCERNA SHAKE 237 ML CAN PO SCH ×2 (08:22→16:44)
[2022-04-17] MEDS: PANTOPRAZOLE 40 MG TABLET.DR PO SCH (08:22)
[2022-04-17] MEDS: BLOOD SUGAR DIAGNOSTIC 1 EACH STRIP IN SCH ×4 (08:24→21:36)
[2022-04-17] MEDS: INSULIN REGULAR, HUMAN 100 UNIT/ML 3 ML VIAL SQ PRN ×4 (08:29→21:38)
[2022-04-17 09:00] VITALS: BP 119/72
--- NOTE | 2022-04-17 11:16 | NUR ---
ms rn note rounds made all needs attended, keep clean dry call light within reach
[2022-04-17 12:00] VITALS: BP 119/72
--- NOTE | 2022-04-17 15:00 | NUR ---
MS RN NOTE ROUNDS MADE RESTING COMFORTABLY, ALL NEEDS ATTENDED
[2022-04-17 16:00] VITALS: BP 112/69
--- NOTE | 2022-04-17 18:35 | NUR ---
MS RN NOTE PATIENT IN BED. ALERT RIENTEDX1 , RT FA HL INTACT AND FLUSHED WELL , ON RA NO SOB NOTED AT THIS TIME, BED IN LOWEST AND LOCKED POSITION , WILL CONT TO MONITOR CLOSELY
[2022-04-17 20:00] VITALS: BP 106/62
--- NOTE | 2022-04-17 21:20 | NUR ---
MS RN NOTE RECEIVED PT IN BED SEMI FOLOWER POSITION. A/O X 1 NO SOB, NO DISTRESS OR DISCOMFORT NOTED. DENIES PAIN. RFA # 22 G INTACT AND PATENT. NO S/S OF INFILTRATION NOTED. KEPT HER DRY AND CLEAN. ALL NEEDS ATTENDED. VSS. CONTINUE TO MONITOR HER.
[2022-04-17] MEDS: ENOXAPARIN SODIUM 40 MG/0.4 ML DISP.SYRIN SQ SCH (21:34)
[2022-04-18] MEDS: CEFTRIAXONE 1 G in IV D5W 50 ML IV SCH (00:44)
[2022-04-18 06:02] LABS: BASOPHILS % (AUTO) 0.4 % (0.0-2.0); HEMATOCRIT 39 % (33-45); HEMOGLOBIN 12.8 g/dL (11.5-14.8); LYMPHOCYTES # (AUTO) 2.9 K/uL (0.8-4.8); LYMPHOCYTES % (AUTO) 36.5 % (20.0-44.0); MEAN CORPUSCULAR HGB CONC 33 g/dl (31.0-36.0); MEAN CORPUSCULAR VOLUME 90 fL (82-100); MONOCYTES % (AUTO) 12.6 % (2.0-12.0); NEUTROPHILS % (AUTO) 49.5 % (43.0-81.0); PLATELET COUNT (AUTO) 201 K/uL (150-450); RED BLOOD CELL COUNT(AUTO) 4.33 MIL/uL (4.0-5.2)
[2022-04-18 06:12] LABS: CALCIUM, SERUM 8.6 mg/dL (8.5-10.1); CARBON DIOXIDE 30 mmol/L (21-32); CHLORIDE 100 mmol/L (98-107); CREATININE 0.4 mg/dL (0.6-1.3); GLUCOSE 120 mg/dL (74-106); MAGNESIUM 1.9 mg/dL (1.8-2.4); PHOSPHORUS 4.2 mg/dL (2.5-4.9); POTASSIUM 3.5 mmol/L (3.5-5.1); SODIUM SERUM 136 mmol/L (136-145); UREA NITROGEN, BLOOD 9 mg/dL (7-18)
--- NOTE | 2022-04-18 07:45 | NUR ---
OILER HELPER NOTES: RECIVED PT AWAKE IN BED AOX1. NO SIGNS OF PAIN OR DISCOMFORT AT THIS TIME. PT IS ON RA AND TOLERATING IT WELL. IV ACCESS ON RFA 22G. SAFETY MEASURE IN PLACE. SIDERAILS UP AT ALL TIMES. WILL CONTINUE TO MONITOR.
[2022-04-18] MEDS: PANTOPRAZOLE 40 MG TABLET.DR PO SCH (08:29)
[2022-04-18] MEDS: BLOOD SUGAR DIAGNOSTIC 1 EACH STRIP IN SCH ×2 (08:29→12:17)
[2022-04-18] MEDS: GLUCERNA SHAKE 237 ML CAN PO SCH (08:30)
[2022-04-18] MEDS ORDERED: NA P133E RC (11:46)
[2022-04-18] MEDS ORDERED: ACET-868 PO (11:46)
[2022-04-18] MEDS ORDERED: IBUP-1955 PO (11:46)
[2022-04-18] MEDS ORDERED: RISP0.2515 PO (11:46)
[2022-04-18] MEDS ORDERED: BISA10SU11 RC (11:46)
[2022-04-18] MEDS: INSULIN REGULAR, HUMAN 100 UNIT/ML 3 ML VIAL SQ PRN (12:18)
--- NOTE | 2022-04-18 13:50 | NUR ---
RN NOTE COVID 19 ANTIGEN SWAB SPECIMEN COLLECTED AND SENT TO LAB.
[2022-04-18] MEDS ORDERED: CIPR500T5 PO (15:08)
--- NOTE | 2022-04-18 18:17 | NUR ---
RN NOTES: PT PICKED UP BY 2 BALANCE CLERK. TRANSFERRED FROM BED TO [facility]. NO SIGNS OF PAIN OR DISCOMFORT. VITAL SIGNS STABLE. IV ACCESS ON RFA D/C'd. GAVE REPORT TO ANKIT BUSH RN FROM [facility].
== END 2022-04-18 16:51 | DRG 177 ==
LOC: ER 22:36 → TRANSITION 04-15 03:10 → MEDSG1 04-15 08:14
PROVIDERS: ADMIT Nurse Practitioner Acute Care; ATTEND Student in an Organized Health Care Education/Training Program
DX: U07.1 COVID-19 (principal); G93.41 Metabolic encephalopathy; E44.0 Moderate protein-calorie malnutrition; E87.1 Hypo-osmolality and hyponatremia; N39.0 Urinary tract infection, site not specified; F02.80 Dementia in other diseases classified elsewhere, unspecified severity, without behavioral disturbance, psychotic disturbance, mood disturbance, and anxiety; I25.10 Atherosclerotic heart disease of native coronary artery without angina pectoris; G30.9 Alzheimer's disease, unspecified; J45.909 Unspecified asthma, uncomplicated; E11.9 Type 2 diabetes mellitus without complications; R27.8 Other lack of coordination; F39 Unspecified mood [affective] disorder; Z79.84 Long term (current) use of oral hypoglycemic drugs; Z79.4 Long term (current) use of insulin; Z79.899 Other long term (current) drug therapy; I10 Essential (primary) hypertension; E88.09 Other disorders of plasma-protein metabolism, not elsewhere classified; Z78.9 Other specified health status; R54 Age-related physical debility
CPT/HCPCS: 36415; 71045-TC; 80048-TC; 80076-TC; 81001; 82962-TC; 83605-TC; 83735-TC; 84100-TC; 84439-TC; 84443-TC; 84484-TC; 85025-TC; 85730-TC; 87040-TC; 87081-TC; 87086-TC; 97110-TC; 97112-TC; 97530-TC; C9113; C9803; G0378; J0696; J1650; J1815; J2405; J7050; J7060; U0003

== ENCOUNTER 2022-07-29 23:36 | Inpatient (IN) | payer MEDICARE, OTHER ==
[~2022-07-29] VITALS: Ht 147.3 cm; Wt 45.0 kg
[~2022-07-29 23:36] MED LIST changes: +ACET-868 PO; +BISA10SU11 RC; +CIPR500T5 PO; +IBUP-1955 PO; +NA P133E RC; +RISP0.2515 PO
--- NOTE | 2022-07-29 23:36 | NUR ---
KALYAN RANDALL FROM [facility] FOR GEN WEAKNESS, DECLINE IN FUNCTION. PT A/OX3. TOLERATING R/A WELL WITH NO RESP DISTRESS. CONNECTED PT TO POX AND MONITOR. SAFETY MEASURES IN PLACE. Addendum: 07/30/22 at 0312 by SHASHA KALYAN RANDALL FROM [facility] FOR GEN WEAKNESS, DECLINE IN FUNCTION. PT A/OX2; SHORT TERM MEMORY NOTED. TOLERATING R/A WELL WITH NO RESP DISTRESS. CONNECTED PT TO POX AND MONITOR. SAFETY MEASURES IN PLACE.
--- NOTE | 2022-07-30 00:10 | NUR ---
IV RAC #20G S/L BLOOD AND COVID ANTIGEN SWAB COLLECTED AND SENT TO LAB
--- NOTE | 2022-07-30 00:13 | NUR ---
ALTERATION TAILOR APPRENTICE AT PT'S BEDSIDE
[2022-07-30 00:18] LABS: BASOPHILS % (AUTO) 0.4 % (0.0-2.0); EOSINOPHILS % (AUTO) 1.9 % (0.0-6.0); HEMATOCRIT 39 % (33-45); HEMOGLOBIN 12.8 g/dL (11.5-14.8); LYMPHOCYTES # (AUTO) 2.4 K/uL (0.8-4.8); LYMPHOCYTES % (AUTO) 30.3 % (20.0-44.0); MEAN CORPUSCULAR HGB CONC 32 g/dl (31.0-36.0); MEAN CORPUSCULAR VOLUME 92 fL (82-100); MONOCYTES # (AUTO) 0.6 K/uL (0.1-1.30); NEUTROPHILS # (AUTO) 4.6 K/uL (1.8-8.9); NEUTROPHILS % (AUTO) 59.4 % (43.0-81.0); PLATELET COUNT (AUTO) 217 K/uL (150-450); RED BLOOD CELL COUNT(AUTO) 4.28 MIL/uL (4.0-5.2); WHITE BLOOD COUNT (AUTO) 7.8 K/uL (4.3-11.0)
[2022-07-30 00:35] LABS: CALCIUM, SERUM 9.4 mg/dL (8.5-10.1); CARBON DIOXIDE 30 mmol/L (21-32); CHLORIDE 103 mmol/L (98-107); CREATININE 0.8 mg/dL (0.6-1.3); GLUCOSE 165 mg/dL (74-106); POTASSIUM 4.2 mmol/L (3.5-5.1); SODIUM SERUM 139 mmol/L (136-145); UREA NITROGEN, BLOOD 19 mg/dL (7-18)
[2022-07-30 00:42] LABS: ALANINE AMINOTRANSFERASE 14 U/L (12-78); ALBUMIN 3.6 g/dL (3.4-5.0); ALKALINE PHOSPHATASE 83 U/L (46-116); ASPARTATE AMINOTRANSFERASE 12 U/L (15-37); BILIRUBIN,DIRECT 0.1 mg/dL (0.0-0.2); BILIRUBIN,TOTAL 0.3 mg/dL (0.2-1.0); TOTAL PROTEIN, SERUM 7.6 g/dL (6.4-8.2)
--- NOTE | 2022-07-30 01:39 | NUR ---
URINE COLLECTED AND SENT TO LAB
[2022-07-30] MEDS: ENOXAPARIN SODIUM 40 MG/0.4 ML DISP.SYRIN SQ SCH ×2 (02:00→21:23)
[2022-07-30] MEDS ORDERED: ONDANSETRON HCL/PF 4 MG/2 ML VIAL IVP PRN (02:00)
[2022-07-30] MEDS ORDERED: DEXTROSE 50%-WATER 50 ML DISP.SYRIN IV PRN (02:00)
[2022-07-30] MEDS ORDERED: Z GUARD REMEDY 4 OZ OINT TP PRN (02:00)
[2022-07-30] MEDS ORDERED: BISACODYL SUPP (10 MG) 10 MG/SUPP.RECT SUPP.RECT RC PRN (02:00)
[2022-07-30] MEDS ORDERED: MAGNESIUM HYDROXIDE 30 ML UDC PO PRN (02:00)
[2022-07-30] MEDS ORDERED: ACETAMINOPHEN 325 MG TABLET PO PRN (02:00)
[2022-07-30] MEDS ORDERED: NA PHOS,M-B/NA PHOS,DI-BA 1 EA ENEMA RC PRN (02:00)
[2022-07-30 02:23] LABS: BILIRUBIN,URINE NEGATIVE (NEGATIVE); COLOR,URINE YELLOW (YELLOW); LEUKOCYTE ESTERASE ,URINE NEGATIVE (NEGATIVE); NITRITE, URINE NEGATIVE (NEGATIVE); PH,URINE 5.5 (5.0-8.0); PROTEIN,URINE NEGATIVE (NEGATIVE); UGLUCOSE 2+ mg/dL (NEGATIVE); UROBILINOGEN,URINE 0.2 EU/dL (0.2)
[2022-07-30 02:35] LABS: BACTERIA,URINE Rare /HPF (None Seen); RBC,URINE 0-2 /HPF (0-2); SQUAMOUS EPITHELIAL CELL,UR Moderate /HPF (None Seen); WBC,URINE 0-2 /HPF (0-3)
--- NOTE | 2022-07-30 03:11 | NUR ---
REPORT GIVEN TO MARLON Kline RN FOR ARIES
--- NOTE | 2022-07-30 03:20 | NUR ---
PT TRANSFERRED TO 327 VIA ACLS PROTOCOL. VSS.
--- NOTE | 2022-07-30 03:25 | NUR ---
MS FRONT LOADER RESIDENTIAL DRIVER NOTE PT BROUGHT UP VIA GURNEY TO UNIT AT THIS TIME. PT ADMITTED FROM ER TO MS UNDER ENGINEER SYSTEMS EDMAR FOR ADMITTING DX FAILURE TO THRIVE. A/O X3 AND ABLE TO MAKE NEEDS KNOWN. PT STABLE ON ROOM AIR, SATURATING 99%. NO SOB OR S/S OF RESPIRATORY DISTRESS. BREATHING EVEN AND UNLABORED. IV ACCESS RAC 20G, INTACT AND PATENT. SKIN INTACT. ORIENTED TO UNIT, ROOM, AND STAFF. PT BELONGINGS ACCOUNTED FOR AND BELONGINGS LIST SIGNED. SAFETY PRECAUTIONS IN PLACE. BED IN LOWEST LOCKED POSITION, HOB ELEVATED, SIDE RAILS UP X3, AND CALL LIGHT AND TABLE WITHIN REACH. ALL NEEDS MET AT THIS TIME.
[2022-07-30 03:57] VITALS: BP 136/79
[2022-07-30] MEDS: BLOOD SUGAR DIAGNOSTIC 1 EACH STRIP IN SCH ×4 (06:31→21:35)
[2022-07-30] MEDS: INSULIN REGULAR, HUMAN 100 UNIT/ML 3 ML VIAL SQ PRN ×4 (06:32→21:36)
--- NOTE | 2022-07-30 06:39 | NUR ---
MS RN CLOSING NOTE PT AWAKE IN BED. A/O X3 AND ABLE TO MAKE NEEDS KNOWN. PT STABLE ON ROOM AIR, SATURATING 99%. NO SOB OR S/S OF RESPIRATORY DISTRESS. BREATHING EVEN AND UNLABORED. IV ACCESS RAC 20G, INTACT AND PATENT. ALL DUE MEDS GIVEN ORDERED. KEPT CLEAN AND DRY. SAFETY PRECAUTIONS IN PLACE AT ALL TIMES. BED IN LOWEST LOCKED POSITION, HOB ELEVATED, SIDE RAILS UP X3, AND CALL LIGHT AND TABLE WITHIN REACH. ALL NEEDS MET AT THIS TIME AND WILL ENDORSE TO ONCOMING NURSE FOR ARIES.
--- NOTE | 2022-07-30 07:30 | NUR ---
MS RN OPENING NOTE RECEIVED PT RESTING IN BED. A/O X 3, ABLE TO MAKE NEEDS KNOWN. NO COMPLAINTS OF PAIN OR DISCOMFORT AT THIS TIME. ON ROOM AIR, TOLERATING WELL. NO SIGNS OF ACUTE RESPIRATORY DISTRESS. IV ACCESS RFA 20G, SL, INTACT AND PATENT. SAFETY PRECAUTIONS IN PLACE: BED IN LOWEST LOCKED POSITION, HOB ELEVATED, SIDE RAILS UP X 3, CALL LIGHT AND TRAY TABLE WITHIN REACH. WILL CONTINUE TO MONITOR.
[2022-07-30] MEDS: PANTOPRAZOLE 40 MG TABLET.DR PO SCH (07:40)
[2022-07-30 08:00] VITALS: BP 152/64
[2022-07-30] MEDS: DIVALPROEX SODIUM 250 MG TABLET.DR PO SCH ×3 (08:16→16:17)
[2022-07-30] MEDS: glipiZIDE 5 MG TABLET PO SCH ×2 (08:16→16:18)
[2022-07-30] MEDS: risperiDONE 0.25 MG TABLET PO SCH ×2 (08:16→21:20)
[2022-07-30] MEDS: RIVASTIGMINE TARTRATE 1.5 MG CAPSULE PO SCH ×2 (08:16→21:20)
[2022-07-30] MEDS ORDERED: MULT-447 PO (09:44)
[2022-07-30 16:03] VITALS: BP 127/64
--- NOTE | 2022-07-30 18:45 | NUR ---
MS RN CLOSING NOTE PT RESTING IN BED. A/O X 3, ABLE TO MAKE NEEDS KNOWN. NO COMPLAINTS OF PAIN OR DISCOMFORT AT THIS TIME. ON ROOM AIR, TOLERATED WELL. IV ACCESS RFA 20G, SL, INTACT AND PATENT. NEEDS ATTENDED. SAFETY PRECAUTIONS IN PLACE: BED IN LOWEST LOCKED POSITION, HOB ELEVATED, SIDE RAILS UP X 3, CALL LIGHT AND TRAY TABLE WITHIN REACH. WILL ENDORSE ARIES TO TRANSPORT ASSISTANT.
--- NOTE | 2022-07-30 19:15 | NUR ---
MS RN OPENING NOTES - RECEIVED PATIENT IN BED AWAKE. A/O X2. BREATHING EVEN AND NON-LABORED ON ROOM AIR. NOT IN APPARENT DISTRESS. DENIES PAIN AT THIS TIME. HAS RIGHT ANTECUBITAL IV ACCESS #20G AND SALINE LOCKED. NO S/S OF INFILTRATION NOTED. SAFETY PRECAUTIONS IN PLACE: BED LOCKED AND IN LOW POSITION, SIDE RAILS UP X2, CALL LIGHT WITHIN REACH. WILL CONTINUE PLAN OF CARE.
[2022-07-30 20:00] VITALS: BP 126/64
[2022-07-30 20:48] VITALS: BP 126/64
[2022-07-30] MEDS: MIRTAZAPINE 15 MG TABLET PO SCH (21:20)
[2022-07-30] MEDS: INSULIN GLARGINE, 100 UNIT/ML CARTRIDGE SQ SCH (21:36)
--- NOTE | 2022-07-30 21:37 | NUR ---
BS 91 mg/dL, NO LANTUS AND REGULAR INSULIN COVERAGE GIVEN.
[2022-07-31 06:28] LABS: BASOPHILS % (AUTO) 0.2 % (0.0-2.0); EOSINOPHILS % (AUTO) 1.7 % (0.0-6.0); HEMATOCRIT 39 % (33-45); HEMOGLOBIN 12.8 g/dL (11.5-14.8); LYMPHOCYTES # (AUTO) 2.2 K/uL (0.8-4.8); LYMPHOCYTES % (AUTO) 30.4 % (20.0-44.0); MEAN CORPUSCULAR HGB CONC 33 g/dl (31.0-36.0); MEAN CORPUSCULAR VOLUME 93 fL (82-100); MONOCYTES # (AUTO) 0.6 K/uL (0.1-1.30); MONOCYTES % (AUTO) 7.5 % (2.0-12.0); NEUTROPHILS # (AUTO) 4.4 K/uL (1.8-8.9); NEUTROPHILS % (AUTO) 60.2 % (43.0-81.0); PLATELET COUNT (AUTO) 191 K/uL (150-450); RED BLOOD CELL COUNT(AUTO) 4.23 MIL/uL (4.0-5.2); WHITE BLOOD COUNT (AUTO) 7.3 K/uL (4.3-11.0)
[2022-07-31] MEDS: BLOOD SUGAR DIAGNOSTIC 1 EACH STRIP IN SCH ×4 (06:31→21:24)
[2022-07-31] MEDS: INSULIN REGULAR, HUMAN 100 UNIT/ML 3 ML VIAL SQ PRN ×4 (06:33→21:28)
--- NOTE | 2022-07-31 06:50 | NUR ---
MS RN CLOSING NOTES - PATIENT SLEEPING, EASY TO AROUSE. ABLE TO VERBALIZE NEEDS. NO SOB OR NOTED, TOLERATING ROOM AIR WELL. NO CARDIAC OR RESPIRATORY DISTRESS. NO C/O PAIN OR DISCOMFORT. AFEBRILE. RIGHT ANTECUBITAL IV ACCESS INTACT, PATENT AND FLUSHING. ALL DUE MEDS GIVEN AND NEEDS ATTENDED. SAFETY PRECAUTIONS MAINTAINED. WILL ENDORSE TO NEXT SHIFT FOR ARIES.
[2022-07-31 07:02] LABS: CALCIUM, SERUM 8.8 mg/dL (8.5-10.1); CREATININE 0.6 mg/dL (0.6-1.3); MAGNESIUM 1.9 mg/dL (1.8-2.4); PHOSPHORUS 4.6 mg/dL (2.5-4.9); POTASSIUM 3.9 mmol/L (3.5-5.1)
[2022-07-31 08:00] VITALS: BP 136/67
--- NOTE | 2022-07-31 08:03 | NUR ---
MS RN OPENING NOTE (DAYSHIFT) RECEIVED PT RESTING IN BED. A/O X 3, ABLE TO MAKE NEEDS KNOWN. NO COMPLAINTS OF PAIN OR DISCOMFORT AT THIS TIME. ON ROOM AIR, TOLERATING WELL. NO SIGNS OF ACUTE RESPIRATORY DISTRESS. IV ACCESS TO RIGHT FA 20G, SL, INTACT AND PATENT. SAFETY PRECAUTIONS IN PLACE: BED IN LOWEST LOCKED POSITION; HOB ELEVATED; SIDE RAILS UP X 3; CALL LIGHT AND TRAY TABLE WITHIN REACH. WILL CONTINUE TO MONITOR AND CARE FOR PATIENT PER HOSPITALIST'S POC.
[2022-07-31] MEDS: DIVALPROEX SODIUM 250 MG TABLET.DR PO SCH ×3 (08:18→17:24)
[2022-07-31] MEDS: RIVASTIGMINE TARTRATE 1.5 MG CAPSULE PO SCH ×2 (08:18→20:27)
[2022-07-31] MEDS: PANTOPRAZOLE 40 MG TABLET.DR PO SCH (08:18)
[2022-07-31] MEDS: glipiZIDE 5 MG TABLET PO SCH ×2 (08:19→17:24)
[2022-07-31] MEDS: risperiDONE 0.25 MG TABLET PO SCH ×2 (08:19→20:27)
[2022-07-31 09:55] LABS: THYROID STIMULATING HORMONE 4.59 uIU/mL (0.358-3.74)
[2022-07-31 16:00] VITALS: BP 119/67
--- NOTE | 2022-07-31 19:00 | NUR ---
RN OPENING NOTES PT IS AWAKE IN BED. A/OX2, CONFUSED ASKING THE NURSE IS SHE CAN CALL HER DAD. PT IS IN RA TOLERATING WELL, BREATHING EVEN AND UNLABORED @ THIS TIME. IV IS PRESENT ON RIGHT AC #20G SALINE LOCK, PATENT, INTACT AND FLUSHES WELL, W/ NO S & SX OF INFILTRATION @ SITE NOTED. PT IS ON DIAPER. SAFETY MEASURES IN PLACE. BED IN ITS LOWEST AND LOCKED POSITION. SIDE RAILS UP X 2. BED TABLE AND CALL LIGHT IS EASY REACH. BED ALARM IS ON. WILL CONTINUE TO MONITOR PT.
--- NOTE | 2022-07-31 19:02 | NUR ---
MS RN CLOSING NOTE (DAYSHIFT) PT RESTING IN BED. A/O X 3, ABLE TO MAKE NEEDS KNOWN. NO COMPLAINTS OF PAIN OR DISCOMFORT AT THIS TIME. ON ROOM AIR, TOLERATED WELL. IV ACCESS RFA 20G, SL, INTACT AND PATENT. NEEDS ATTENDED. SAFETY PRECAUTIONS IN PLACE: BED IN LOWEST LOCKED POSITION, HOB ELEVATED, SIDE RAILS UP X 3, CALL LIGHT AND TRAY TABLE WITHIN REACH. PATIENT HAS FAIR TO POOR APPETITE. 1:1 FEEDING DONE BY STAFF TO ENCOURAGE PT TO EAT MORE WHILE MAINTAINING ASPIRATION PRECAUTIONS WIT HOB EEVATED AT ALL TIMES. WILL ENDORSE TO BUSINESS RISK ANALYST NURSETORRIE, FOR ARIES.
[2022-07-31] MEDS: ENOXAPARIN SODIUM 40 MG/0.4 ML DISP.SYRIN SQ SCH (20:26)
[2022-07-31 20:33] VITALS: BP 120/64
[2022-07-31 21:07] VITALS: BP 109/67
[2022-07-31] MEDS: MIRTAZAPINE 15 MG TABLET PO SCH (21:13)
[2022-07-31] MEDS: INSULIN GLARGINE, 100 UNIT/ML CARTRIDGE SQ SCH (21:27)
[2022-08-01] MEDS: BLOOD SUGAR DIAGNOSTIC 1 EACH STRIP IN SCH ×4 (06:33→21:35)
[2022-08-01] MEDS: INSULIN REGULAR, HUMAN 100 UNIT/ML 3 ML VIAL SQ PRN ×4 (06:34→21:35)
[2022-08-01 07:00] VITALS: BP 123/61
--- NOTE | 2022-08-01 07:03 | NUR ---
RN CLOSING NOTES PT IS SLEEPING & RESTING COMFORTABLY IN BED. A/OX2, RESPONSIVE AND FOLLOWS VERBAL COMMAND. PT IS IN RA, W/ NO RESPIRATORY DISTRESS @ THIS TIME. IV IS PRESENT ON RIGHT AC #20G SALINE LOCK, PATENT, INTACT AND FLUSHES WELL, W/ NO S & SX OF INFILTRATION @ SITE NOTED. PT'S DIAPER CHANGED, KEPT CLEAN, DRY AND COMFORTABLE. ADMINISTERED MEDICATION ACCORDINGLY PER MD'S ORDER. PT IS ON DIAPER. SAFETY MEASURES IN PLACE. BED IN ITS LOWEST AND LOCKED POSITION. SIDE RAILS UP X 2. BED TABLE AND CALL LIGHT IS EASY REACH. BED ALARM IS ON.WILL ENDORSE PT TO THE NEXT SHIFT FOR CONTINUITY OF CARE.
--- NOTE | 2022-08-01 07:30 | NUR ---
RN OPENING NOTE RECEIVED PATIENT IN BED, AWAKE, A/O X2, VERBALLY RESPONSIVE. SIGNS OF ACUTE DISTRESS AT THIS TIME. NO C/O PAIN AT THIS TIME. ON ROOM AIR, NO SOB NOTED, BREATHING EVEN AND UNLABORED. NOTED WITH IV ACCESS ON RIGHT ANTECUBITAL #20G, INTACT AND PATENT, SALINE LOCKED. SAFETY MEASURE IN PLACE. BED IN LOW AND LOCKED POSITION, SIDE RAILS UP X2, CALL LIGHT PLACED WITHIN EASY REACH. WILL CONTINUE TO MONITOR PATIENT.
[2022-08-01] MEDS: PANTOPRAZOLE 40 MG TABLET.DR PO SCH (08:32)
[2022-08-01] MEDS: glipiZIDE 5 MG TABLET PO SCH ×2 (08:32→16:37)
[2022-08-01] MEDS: RIVASTIGMINE TARTRATE 1.5 MG CAPSULE PO SCH ×2 (08:32→21:09)
[2022-08-01] MEDS: risperiDONE 0.25 MG TABLET PO SCH ×2 (08:33→21:10)
[2022-08-01] MEDS: DIVALPROEX SODIUM 250 MG TABLET.DR PO SCH ×3 (08:33→16:37)
--- NOTE | 2022-08-01 18:47 | NUR ---
RN CLOSING NOTE PATIENT IN BED, AWAKE, VERBALLY RESPONSIVE AND ABLE TO MAKE NEEDS KNOWN. NO SIGNS OF ACUTE DISTRESS NOTED. DENIED ANY PAIN OR DISCOMFORT. REMAINS STABLE ON ROOM AIR, NO SOB NOTED, BREATHING EVEN AND UNLABORED. WITH IV ACCESS ON RIGHT ANTECUBITAL #20G, INTACT AND PATENT, SALINE LOCKED. ALL DUE MEDS GIVEN TOLERATED WELL. ACCUCHECKS DONE ORDERED, INSULIN GIVEN PER SLIDING SCALE. SAFETY MEASURE MAINTAINED. BED IN LOW AND LOCKED POSITION, SIDE RAILS UP X2, CALL LIGHT PLACED WITHIN EASY REACH. WILL ENDORSE TO NEXT SHIFT FOR CONTINUITY OF CARE.
--- NOTE | 2022-08-01 19:22 | NUR ---
RN OPENING NOTE RECEIVED PATIENT IN BED SLEEPING BUT EASY TO AROUSED,NO SIGN SOB/DISTRESS NOTED,BREATHING EVEN AND UNLABORED.IV ACCESS ON RIGHT ANTECUBITAL #20G, INTACT AND PATENT, SALINE LOCKED. SAFETY MEASURE IN PLACE. BED IN LOW AND LOCKED POSITION, SIDE RAILS UP X2, CALL LIGHT PLACED WITHIN EASY REACH. WILL CONTINUE TO MONITOR.
[2022-08-01 20:00] VITALS: BP 114/58
[2022-08-01] MEDS: MIRTAZAPINE 15 MG TABLET PO SCH (21:10)
[2022-08-01] MEDS: ENOXAPARIN SODIUM 40 MG/0.4 ML DISP.SYRIN SQ SCH (21:12)
[2022-08-01] MEDS: INSULIN GLARGINE, 100 UNIT/ML CARTRIDGE SQ SCH (21:36)
--- NOTE | 2022-08-02 06:20 | NUR ---
RN CLOSING NOTE; PATIENT IN BED SLEEPING BUT EASY TO AROUSED,AOX2-3,NO SIGN SOB/DISTRESS NOTED,BREATHING EVEN AND UNLABORED.NO COMPLAIN OF PAIN/DISCOMFORT DURING SHIFT,DUE MEDS GIVEN ORDER,ALL NEEDS ATTENDED,IV ACCESS ON RIGHT ANTECUBITAL #20G, INTACT AND PATENT, SALINE LOCKED. SAFETY MEASURE IN PLACE. BED IN LOW AND LOCKED POSITION, SIDE RAILS UP X2, CALL LIGHT PLACED WITHIN EASY REACH,WILL
[2022-08-02] MEDS: BLOOD SUGAR DIAGNOSTIC 1 EACH STRIP IN SCH ×3 (06:23→17:18)
--- NOTE | 2022-08-02 07:30 | NUR ---
MS RN OPENING NOTE RECEIVED PATIENT ON BED, AWAKE, A/O X2, VERBALLY RESPONSIVE. ON ROOM AIR TOLERATING WELL. NO SOB NOTED. NOT IN DISTRESS. WITH NO C/O PAIN AT THIS TIME. WITH IV ACCESS ON RIGHT ANTECUBITAL #20G, INTACT AND PATENT, SALINE LOCKED. SAFETY MEASURE IN PLACE. BED IN LOW AND LOCKED POSITION, SIDE RAILS UP X2, CALL LIGHT PLACED WITHIN EASY REACH. WILL CONTINUE TO MONITOR PATIENT.
[2022-08-02 08:00] VITALS: BP 121/67
[2022-08-02] MEDS: risperiDONE 0.25 MG TABLET PO SCH (08:09)
[2022-08-02] MEDS: DIVALPROEX SODIUM 250 MG TABLET.DR PO SCH ×3 (08:09→16:29)
[2022-08-02] MEDS: RIVASTIGMINE TARTRATE 1.5 MG CAPSULE PO SCH (08:09)
[2022-08-02] MEDS: glipiZIDE 5 MG TABLET PO SCH ×2 (08:09→16:29)
[2022-08-02] MEDS: PANTOPRAZOLE 40 MG TABLET.DR PO SCH (08:09)
[2022-08-02] MEDS: INSULIN REGULAR, HUMAN 100 UNIT/ML 3 ML VIAL SQ PRN ×2 (12:24→17:18)
--- NOTE | 2022-08-02 17:45 | NUR ---
MS TIP SCOURER NOTES PATIENT WAS SEEN BY RAINA GILMORE NP AND WAS ORDERED FOR DISCHARGE. PATIENT IS TO BE DISCHARGED BACK TO [facility]. GIVEN REPOST TO ANKIT ALBERTO FROM [facility] VIA PHONE CALL AT [phone]. PATIENT IS AWAKE AND A/O X2. ON ROOM AIR TOLERATING WELL. NOT IN DISTRESS. PATIENT WAS ABLE TO TAKE HER DINNER 75%. PATIENT UNABLE TO SIGN DISCHARGE FORMS. REMOVED IV LINE AND NAME WRIST BAND. PATIENT WAS PICKED UP BY AMBULANCE FOR TRANSPORTATION TO [facility] IN STABLE CONDITION. MD AND CHARGE NURSE ARE AWARE OF THE DISCHARGE.
== END 2022-08-02 17:45 | DRG 641 ==
LOC: ER 23:46 → MED 07-30 03:01 → UNDODISIN 08-02 15:00
PROVIDERS: ATTEND Nurse Practitioner Acute Care
DX: R62.7 Adult failure to thrive (principal); F02.83 Dementia in other diseases classified elsewhere, unspecified severity, with mood disturbance; G30.9 Alzheimer's disease, unspecified; Z20.822 Contact with and (suspected) exposure to COVID-19; I25.10 Atherosclerotic heart disease of native coronary artery without angina pectoris; I10 Essential (primary) hypertension; J45.909 Unspecified asthma, uncomplicated; E11.9 Type 2 diabetes mellitus without complications; R27.8 Other lack of coordination; Z79.4 Long term (current) use of insulin; Z79.84 Long term (current) use of oral hypoglycemic drugs; Z79.899 Other long term (current) drug therapy; Z86.16 Personal history of COVID-19
CPT/HCPCS: 36415; 71045-TC; 80048-TC; 80076-TC; 81001; 82550-TC; 82607-TC; 82962-TC; 83735-TC; 83921; 84100-TC; 84439-TC; 84443-TC; 84480; 84484-TC; 85025-TC; 85730-TC; 87081-TC; 97116-TC; 97530-TC; C9803; G0378; J1650; J1815

== ENCOUNTER 2023-07-28 12:39 | Inpatient (IN) | payer MEDICARE, OTHER ==
[~2023-07-28] VITALS: Ht 157.5 cm; Wt 46.0 kg
[~2023-07-28 12:39] MED LIST changes: -CIPR500T5 PO; +MULT-447 PO
[2023-07-28 13:26] LABS: BASOPHILS % (AUTO) 0.4 % (0.0-2.0); EOSINOPHILS # (AUTO) 0.5 K/uL (0.0-0.7); HEMATOCRIT 39 % (33-45); HEMOGLOBIN 12.8 g/dL (11.5-14.8); LYMPHOCYTES # (AUTO) 2.2 K/uL (0.8-4.8); LYMPHOCYTES % (AUTO) 28.5 % (20.0-44.0); MEAN CORPUSCULAR HEMOGLOBIN 30 PG (26.0-33.0); MEAN CORPUSCULAR HGB CONC 33 g/dl (31.0-36.0); MEAN CORPUSCULAR VOLUME 90 fL (82-100); MONOCYTES # (AUTO) 0.7 K/uL (0.1-1.30); MONOCYTES % (AUTO) 8.8 % (2.0-12.0); NEUTROPHILS # (AUTO) 4.3 K/uL (1.8-8.9); NEUTROPHILS % (AUTO) 55.3 % (43.0-81.0); PLATELET COUNT (AUTO) 255 K/uL (150-450); RED CELL DISTRIBUTION WIDTH 14.3 % (11.5-15.0); WHITE BLOOD COUNT (AUTO) 7.8 K/uL (4.3-11.0)
[2023-07-28 13:35] LABS: CALCIUM, SERUM 9.1 mg/dL (8.5-10.1); CARBON DIOXIDE 29 mmol/L (21-32); CHLORIDE 101 mmol/L (98-107); CREATININE 0.7 mg/dL (0.6-1.3); GLUCOSE 208 mg/dL (74-106); SODIUM SERUM 136 mmol/L (136-145); UREA NITROGEN, BLOOD 12 mg/dL (7-18)
[2023-07-28] MEDS ORDERED: NIFE-35 PO (13:37)
[2023-07-28] MEDS ORDERED: DIVA-76 PO (13:37)
[2023-07-28] MEDS ORDERED: MIRT-91 PO (13:37)
[2023-07-28] MEDS ORDERED: CLOT15CR5 TP (13:37)
[2023-07-28 13:40] LABS: ALANINE AMINOTRANSFERASE 14 U/L (12-78); ALBUMIN 3.2 g/dL (3.4-5.0); ALKALINE PHOSPHATASE 101 U/L (46-116); ASPARTATE AMINOTRANSFERASE 11 U/L (15-37); BILIRUBIN,DIRECT 0.1 mg/dL (0.0-0.2); BILIRUBIN,TOTAL 0.2 mg/dL (0.2-1.0); LIPASE 34 U/L (16-77); TOTAL PROTEIN, SERUM 8.4 g/dL (6.4-8.2)
[2023-07-28 13:44] LABS: APPEARANCE,URINE Clear (CLEAR); BILIRUBIN,URINE Negative (NEGATIVE); BLOOD, URINE Negative Ery/uL (NEGATIVE); COLOR,URINE YELLOW (YELLOW); KETONES,URINE Trace mg/dL (NEGATIVE); LEUKOCYTE ESTERASE ,URINE Negative (NEGATIVE); NITRITE, URINE Negative (NEGATIVE); PROTEIN,URINE Negative (NEGATIVE); UGLUCOSE >=1000 mg/dL (NEGATIVE); UROBILINOGEN,URINE 0.2 EU/dL (0.2)
[2023-07-28 14:22] LABS: ADD URINE CULTURE NO; BACTERIA,URINE None seen /HPF (None Seen); RBC,URINE NONE SEEN /HPF (0-2); WBC,URINE NONE SEEN /HPF (0-3)
[2023-07-28] MEDS ORDERED: ONDANSETRON HCL/PF 4 MG/2 ML VIAL IVP PRN (15:30)
[2023-07-28] MEDS ORDERED: BISACODYL SUPP (10 MG) 10 MG/SUPP.RECT SUPP.RECT RC PRN (15:30)
[2023-07-28] MEDS ORDERED: NA PHOS,M-B/NA PHOS,DI-BA 1 EA ENEMA RC PRN (15:30)
[2023-07-28] MEDS ORDERED: ACETAMINOPHEN 325 MG TABLET PO PRN (15:30)
[2023-07-28] MEDS ORDERED: MAG HYDROX/AL HYDROX/SIMETH 30 ML UDC PO PRN ×2 (15:30)
[2023-07-28] MEDS ORDERED: MAGNESIUM HYDROXIDE 30 ML UDC PO PRN (15:30)
[2023-07-28] MEDS ORDERED: Z GUARD REMEDY 4 OZ OINT TP PRN (15:30)
[2023-07-28] MEDS ORDERED: INSULIN REGULAR, HUMAN 100 UNIT/ML 3 ML VIAL SQ PRN (15:30)
[2023-07-28] MEDS ORDERED: diphenhydrAMINE HCL ELIX 25 MG/10 ML UDC PO PRN (17:30)
[2023-07-28] MEDS: DIVALPROEX SODIUM 250 MG TABLET.DR PO SCH (17:48)
[2023-07-28] MEDS: METFORMIN 500 MG TABLET PO SCH (17:49)
[2023-07-28 20:00] VITALS: BP 111/65; TEMP 97.9
[2023-07-28] MEDS: RIVASTIGMINE TARTRATE 1.5 MG CAPSULE PO SCH (21:06)
[2023-07-28] MEDS: MIRTAZAPINE 15 MG TABLET PO SCH (21:07)
[2023-07-28] MEDS: INSULIN GLARGINE, 100 UNIT/ML CARTRIDGE SQ SCH (22:23)
[2023-07-29 04:00] VITALS: BP 119/63; TEMP 98
[2023-07-29 07:03] LABS: BASOPHILS % (AUTO) 0.3 % (0.0-2.0); EOSINOPHILS # (AUTO) 0.5 K/uL (0.0-0.7); EOSINOPHILS % (AUTO) 6.6 % (0.0-6.0); HEMATOCRIT 38 % (33-45); HEMOGLOBIN 12.6 g/dL (11.5-14.8); LYMPHOCYTES # (AUTO) 1.6 K/uL (0.8-4.8); LYMPHOCYTES % (AUTO) 23.9 % (20.0-44.0); MEAN CORPUSCULAR HEMOGLOBIN 30 PG (26.0-33.0); MEAN CORPUSCULAR HGB CONC 33 g/dl (31.0-36.0); MEAN CORPUSCULAR VOLUME 92 fL (82-100); MONOCYTES # (AUTO) 0.6 K/uL (0.1-1.30); MONOCYTES % (AUTO) 9.4 % (2.0-12.0); NEUTROPHILS # (AUTO) 4.1 K/uL (1.8-8.9); NEUTROPHILS % (AUTO) 59.8 % (43.0-81.0); PLATELET COUNT (AUTO) 243 K/uL (150-450); RED BLOOD CELL COUNT(AUTO) 4.16 MIL/uL (4.0-5.2); RED CELL DISTRIBUTION WIDTH 14.4 % (11.5-15.0); WHITE BLOOD COUNT (AUTO) 6.8 K/uL (4.3-11.0)
[2023-07-29 07:37] LABS: CALCIUM, SERUM 9.2 mg/dL (8.5-10.1); CREATININE 0.6 mg/dL (0.6-1.3); PHOSPHORUS 4.1 mg/dL (2.5-4.9); POTASSIUM 4.2 mmol/L (3.5-5.1)
[2023-07-29 08:00] VITALS: BP 115/63; TEMP 98.2
[2023-07-29] MEDS: NIFEdipine XL (30MG) 30 MG TAB PO SCH (08:56)
[2023-07-29] MEDS ORDERED: *INSULIN REGULAR(HUMULIN R)HUM 100 UNIT/ML VIAL SQ PRN (11:30)
[2023-07-29] MEDS ORDERED: DEXTROSE 50%-WATER 50 ML DISP.SYRIN IV PRN (11:30)
[2023-07-29] MEDS: BLOOD SUGAR DIAGNOSTIC 1 EACH STRIP VI SCH (12:42)
[2023-07-29] MEDS: INSULIN REGULAR, HUMAN 100 UNIT/ML 3 ML VIAL SQ PRN (12:43)
[2023-07-29 16:00] VITALS: BP 114/64; TEMP 97.9
[2023-07-29 20:00] VITALS: BP 106/83; TEMP 98.4; O2SAT 99
[2023-07-30 04:00] VITALS: BP 108/61; TEMP 97.7; O2SAT 98
[2023-07-30] MEDS ORDERED: BISACODYL SUPP (10 MG) 10 MG/SUPP.RECT SUPP.RECT RC PRN (06:00)
[2023-07-30 08:00] VITALS: BP 105/60; TEMP 98.1; O2SAT 95
[2023-07-30 08:32] LABS: CALCIUM, SERUM 8.5 mg/dL (8.5-10.1); CREATININE 0.7 mg/dL (0.6-1.3); POTASSIUM 4.5 mmol/L (3.5-5.1)
[2023-07-30 08:35] LABS: BASOPHILS % (AUTO) 0.2 % (0.0-2.0); EOSINOPHILS # (AUTO) 0.3 K/uL (0.0-0.7); EOSINOPHILS % (AUTO) 4.3 % (0.0-6.0); HEMATOCRIT 36 % (33-45); LYMPHOCYTES # (AUTO) 1.9 K/uL (0.8-4.8); LYMPHOCYTES % (AUTO) 23.9 % (20.0-44.0); MEAN CORPUSCULAR HEMOGLOBIN 30 PG (26.0-33.0); MEAN CORPUSCULAR HGB CONC 33 g/dl (31.0-36.0); MEAN CORPUSCULAR VOLUME 91 fL (82-100); MONOCYTES # (AUTO) 0.7 K/uL (0.1-1.30); MONOCYTES % (AUTO) 8.7 % (2.0-12.0); NEUTROPHILS % (AUTO) 62.9 % (43.0-81.0); PLATELET COUNT (AUTO) 251 K/uL (150-450); RED BLOOD CELL COUNT(AUTO) 3.96 MIL/uL (4.0-5.2); WHITE BLOOD COUNT (AUTO) 7.9 K/uL (4.3-11.0)
[2023-07-30] MEDS: DOCUSATE SODIUM 100 MG CAPSULE PO SCH (09:19)
[2023-07-30 16:00] VITALS: BP 116/67; TEMP 97.9; O2SAT 97
[2023-07-30] MEDS: GLUCERNA SHAKE 237 ML CAN PO SCH (17:08)
[2023-07-30 20:00] VITALS: BP 117/52; TEMP 98.4; O2SAT 98
[2023-07-30] MEDS: SENNOSIDES 8.6 MG TABLET PO SCH (21:57)
[2023-07-31 04:00] VITALS: BP 144/58; TEMP 98; O2SAT 98
[2023-07-31 08:00] VITALS: BP 128/63; TEMP 97.9; O2SAT 96
[2023-07-31 09:36] VITALS: BP 128/63
== END 2023-07-31 15:00 | DRG 640 ==
LOC: ER 12:43 → MEDSG1 14:09
PROVIDERS: ADMIT Internal Medicine; ATTEND Internal Medicine
DX: E86.0 Dehydration (principal); G93.41 Metabolic encephalopathy; E44.0 Moderate protein-calorie malnutrition; F03.92 Unspecified dementia, unspecified severity, with psychotic disturbance; M48.56XA Collapsed vertebra, not elsewhere classified, lumbar region, initial encounter for fracture; L30.9 Dermatitis, unspecified; E88.09 Other disorders of plasma-protein metabolism, not elsewhere classified; Z87.820 Personal history of traumatic brain injury; F25.9 Schizoaffective disorder, unspecified; I10 Essential (primary) hypertension; E11.9 Type 2 diabetes mellitus without complications; R27.8 Other lack of coordination; I25.10 Atherosclerotic heart disease of native coronary artery without angina pectoris; Z79.4 Long term (current) use of insulin; Z79.899 Other long term (current) drug therapy; Z79.84 Long term (current) use of oral hypoglycemic drugs; J45.909 Unspecified asthma, uncomplicated; K80.20 Calculus of gallbladder without cholecystitis without obstruction; N20.0 Calculus of kidney; Z90.710 Acquired absence of both cervix and uterus; Z78.9 Other specified health status
CPT/HCPCS: 36415; 80048-TC; 80076-TC; 81001; 82962-TC; 83690-TC; 83735-TC; 84100-TC; 85025-TC; 87081-TC; G0378; J1815